=== PATIENT | male | born 1970 | race Caucasian/White ===

== ENCOUNTER 2018-12-27 05:11 | Emergency (ER) | payer SELFPAY ==
[~2018-12-27] VITALS: Ht 177.8 cm; Wt 94.3 kg
[~2018-12-27 05:11] MED LIST: DICY10CA40 PO; IBUP800T48 PO
[2018-12-27 05:15] VITALS: Ht 177.8 cm; Wt 94.3 kg
[2018-12-27] MEDS ORDERED: KETOROLAC 15 MG INJ IV STA (06:13)
[2018-12-27] MEDS ORDERED: SOD CHLORIDE 0.9% 1,000 ML IV STA (06:13)
[2018-12-27] MEDS ORDERED: DICYCLOMINE 20 MG INJ IM ONE (06:30)
[2018-12-27 07:54] VITALS: BP 140/78; PULSE 80; RESP 20
== END 2018-12-27 07:56 | disposition home or self-care (01) ==
LOC: E/R 05:11
DX: R19.7 Diarrhea, unspecified (principal); R10.84 Generalized abdominal pain
CPT/HCPCS: 36415; 80053; 81001; 83690; 85025; 96372; 96374; 99284; J0500; J1885; J7030